=== PATIENT | male | born 1995 | race Two or more races ===

== ENCOUNTER 2019-10-02 11:09 | Outpatient (CLI) | payer BC ==
[2019-10-02 12:37] LABS: ABG BASE EXCESS -3.1 mmol/L; ABG OXYGEN SATURATION 95.8 % (92.0-98.5); ABG PCO2 36.7 mmHg (35.0-45.0); ABG PH 7.383 (7.350-7.450); ABG PO2 87.1 mmHg (75.0-100.0); AaDO2 18.7 mmHg; COHb 0.3 % (0.5-1.5); MetHb 0.2 % (0.0-1.5); O2Hb 95.3 % (94.0-97.0); SITE, ABG Right Femoral; VENT MODE, BG RA
== END 2019-10-02 23:59 | disposition home or self-care (01) ==
LOC: LAB 11:09 → MSC 23:59
DX: R06.02 Shortness of breath (principal)
CPT/HCPCS: 36600